=== PATIENT | female | born 1995 | race Caucasian/White ===

== ENCOUNTER → 2019-02-07 | Outpatient (CLI) | payer BC ==
--- NOTE | 2019-02-07 10:04 | ECHOF ---
Referral Reason:R55 Syncope MEASUREMENTS -------- HEIGHT: 160.0 cm WEIGHT: 68.0 kg BP: 132/77 RVIDd: 2.3 cm (< 3.3) IVSd: 0.7 cm (0.6 - 1.1) LVIDd: 4.5 cm (3.9 - 5.3) LVPWd: 0.9 cm (0.6 - 1.1) IVSs: 1.2 cm LVIDs: 2.7 cm LVPWs: 1.7 cm LAESV Index (A-L): 23.47 ml/m Ao Diam: 3.0 cm (2.0 - 3.7) AV Cusp: 2.2 cm (1.5 - 2.6) LA Diam: 3.1 cm (2.7 - 3.8) MV EXCURSION: 16.399 mm (> 18.000) MV EF SLOPE: 119 mm/s (70 - 150) EPSS: 0.6 cm MV E Andrea: 0.83 m/s MV DecT: 219 ms MV A Andrea: 0.46 m/s MV E/A Ratio: 1.80 AR PHT: 652 ms RAP: 5.00 mmHg RVSP: 23.48 mmHg FINDINGS -------- Sinus rhythm. This was a technically good study. The left ventricular size is normal. Left ventricular wall thickness is normal. There is normal g lobal left ventricular contractility. Overall left ventricular systolic function is normal with, an EF between 65 - 70 %. The diastolic filling pattern is normal for the age of the patient 5.28. The right ventricle is normal in size. Normal LA size by volume 22+/-6 ml/m2. The right atrial size is normal. Interatrial and interventricular septum intact. Aortic valve is trileaflet and is mildly thickened. There is mild aortic regurgitation. There is no evidence of aortic stenosis. The mitral valve leaflets are mildly thickened. There is trace mitral regurgitation. Cannot exclu de mitral valve prolapse. The aortic root size is normal. Normal inferior vena cava with normal inspiratory collapse consistent with estimated right atrial pre ssure of 5 mmHg. There is no pericardial effusion. CONCLUSIONS -------- 1. Sinus rhythm. 2. This was a technically good study. 3. The left ventricular size is normal. 4. Left ventricular wall thickness is normal. 5. There is normal global left ventricular contractility. 6. Overall left ventricular systolic function is normal with, an EF between 65 - 70 %. 7. The diastolic filling pattern is normal for the age of the patient 5.28 8. The right ventricle is normal in size. 9. Normal LA size by volume 22+/-6 ml/m2. 10. The right atrial size is normal. 11. Interatrial and interventricular septum intact. 12. Aortic valve is trileaflet and is mildly thickened. 13. There is mild aortic regurgitation. 14. There is no evidence of aortic stenosis. 15. The mitral valve leaflets are mildly thickened. 16. There is trace mitral regurgitation. 17. Cannot exclude mitral valve prolapse. 18. The aortic root size is normal. 19. Normal inferior vena cava with normal inspiratory collapse consistent with estimated right atrial pressure of 5 mmHg. 20. There is no pericardial effusion. PROCESS CONTROLS TECHNICIAN: Kristen Cruz RDCS
== END | disposition home or self-care (01) ==
LOC: RADECHMAIN 08:01
PROVIDERS: ATTEND Family Medicine
DX: I35.1 Nonrheumatic aortic (valve) insufficiency (principal)
CPT/HCPCS: 93306

== ENCOUNTER → 2019-02-13 | Outpatient (CLI) | payer BC ==
--- NOTE | 2019-02-24 11:09 | EEG ---
ELECTROENCEPHALOGRAM REPORT PROCEDURE DATE: 02/13/2019. ELECTROENCEPHALOGRAM (EEG) REPORT: TECHNIQUE: A routine 18 channel EEG was performed with video using the 10/20 international placement system. HISTORY: Patient has passed out 3 or 4 times over the past year. Patient also has headaches. CURRENT MEDICATIONS: None. STUDY DURATION: 28 minutes. FINDINGS: BACKGROUND: The background activity consists of 9-10 hertz rhythmic waveforms, symmetric through both posterior quadrants. ACTIVATION: HYPERVENTILATION: Induced physiological slowing. PHOTIC STIMULATION: Symmetric driving seen. SLEEP: Drowsy in stage I. ABNORMALITIES: None. IMPRESSION: Normal EEG. No epileptiform activity was present. No seizures were recorded. Please note that 1 channel of this EEG was dedicated to EKG. It demonstrated a sinus rhythm. MMODL / IJN: [id number] /
== END | disposition home or self-care (01) ==
LOC: NEUROMAIN 07:34
PROVIDERS: ATTEND Family Medicine
DX: R55 Syncope and collapse (principal)
CPT/HCPCS: 95816